=== PATIENT | female | born 1985 | race African-American/Black ===

== ENCOUNTER 2016-11-22 15:10 | Emergency (ER) | payer OTHER ==
[~2016-11-22] VITALS: Ht 162.6 cm; Wt 81.6 kg
[2016-11-22 15:19] VITALS: BP 131/79
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
[2016-11-22] MEDS ORDERED: NAPR375T3 PO (16:32)
[2016-11-22] MEDS ORDERED: IBUPROFEN 600 MG TABLET. PO ONE (16:45)
== END 2016-11-22 16:50 | disposition home or self-care (01) ==
LOC: ER 15:10
DX: M54.2 Cervicalgia (principal); M54.5 Low back pain; R00.0 Tachycardia, unspecified; G89.29 Other chronic pain; V43.52XA Car driver injured in collision with other type car in traffic accident, initial encounter; Y93.I9 Activity, other involving external motion; Y92.410 Unspecified street and highway as the place of occurrence of the external cause; Y99.8 Other external cause status
CPT/HCPCS: 72125; 72131; 99284-25